=== PATIENT | female | born 1975 | race African-American/Black ===

== ENCOUNTER 2020-04-13 19:02 | Emergency (ER) | payer MEDICAID, OTHER ==
[~2020-04-13] VITALS: Ht 160 cm; Wt 95.3 kg
[~2020-04-13 19:02] MED LIST: QUET200T PO; ZIPR80CA2 PO
--- NOTE | 2020-04-13 20:00 | NUR ---
bibself +si plan to overdose on drugs. -hi. request to go to [facility]. pt aox4 rr even and unlabored. no sob noted. no nvd at this time. no acute distress noted. pt appears calm and cooperative. aware of plan of care and agrees to plan.
--- NOTE | 2020-04-13 20:05 | NUR ---
urine collected. sent to lab
--- NOTE | 2020-04-13 20:17 | NUR ---
lab with pt for blood draw
[2020-04-13 20:26] LABS: BASOPHILS % (AUTO) 0.8 % (0.0-2.0); EOSINOPHILS % (AUTO) 2.4 % (0.0-6.0); HEMATOCRIT 36 % (33-45); HEMOGLOBIN 11.6 g/dL (11.5-14.8); LYMPHOCYTES # (AUTO) 3.1 /CMM (0.8-4.8); LYMPHOCYTES % (AUTO) 48.4 % (20.0-44.0); MEAN CORPUSCULAR HGB CONC 33 g/dl (31.0-36.0); MEAN CORPUSCULAR VOLUME 86 fL (82-100); MONOCYTES # (AUTO) 0.5 /CMM (0.1-1.30); MONOCYTES % (AUTO) 7.8 % (2.0-12.0); NEUTROPHILS # (AUTO) 2.6 /CMM (1.8-8.9); NEUTROPHILS % (AUTO) 40.6 % (43.0-81.0); PLATELET COUNT (AUTO) 327 /CMM (150-450); RED BLOOD CELL COUNT(AUTO) 4.14 MIL/uL (4.0-5.2); WHITE BLOOD COUNT (AUTO) 6.3 K/uL (4.3-11.0)
[2020-04-13 20:37] LABS: BILIRUBIN,URINE NEGATIVE (NEGATIVE); COLOR,URINE YELLOW (YELLOW); LEUKOCYTE ESTERASE ,URINE NEGATIVE (NEGATIVE); NITRITE, URINE NEGATIVE (NEGATIVE); PH,URINE 6.5 (5.0-8.0); PROTEIN,URINE NEGATIVE (NEGATIVE); UGLUCOSE NEGATIVE (NEGATIVE)
[2020-04-13 20:45] LABS: BACTERIA,URINE 2+ /HPF (None Seen)
[2020-04-13 20:49] LABS: ALANINE AMINOTRANSFERASE 16 U/L (12-78); ALBUMIN 3.7 g/dL (3.4-5.0); ALKALINE PHOSPHATASE 60 U/L (46-116); ASPARTATE AMINOTRANSFERASE 15 U/L (15-37); BILIRUBIN,DIRECT 0.1 mg/dL (0.0-0.2); BILIRUBIN,TOTAL 0.2 mg/dL (0.2-1.0); CARBON DIOXIDE 29 mmol/L (21-32); CHLORIDE 103 mmol/L (98-107); GLUCOSE 99 mg/dL (74-106); SODIUM SERUM 140 mmol/L (136-145); TOTAL PROTEIN, SERUM 7.9 g/dL (6.4-8.2); UREA NITROGEN, BLOOD 9 mg/dL (7-18)
[2020-04-13 20:50] LABS: ACETAMINOPHEN < 10 ug/ml (10-30); ALCOHOL, BLOOD < 3 mg/dL (0-0)
[2020-04-13] MEDS ORDERED: CEPH500C2 PO (21:19)
--- NOTE | 2020-04-13 21:26 | NUR ---
Call from lab. Rapid covid negative.
--- NOTE | 2020-04-13 21:28 | NUR ---
Facesheet and clinicals faxed to [facility].
[2020-04-13] MEDS ORDERED: CEPHALEXIN MONOHYDRATE 500 MG CAPSULE PO ONE ×2 (21:30→21:42)
--- NOTE | 2020-04-13 23:47 | NUR ---
[facility] [phone]
--- NOTE | 2020-04-14 00:32 | NUR ---
called [facility] ambulance [phone], spoke to chintan stearns 30mins.
--- NOTE | 2020-04-14 01:03 | NUR ---
Report given to Irena BOYER for continuation of care.
[2020-04-14 01:08] VITALS: BP 132/66
--- NOTE | 2020-04-14 01:08 | NUR ---
pt transferred to [facility]. pt aware of transport. pt with all personal belongings. vss. [facility] transport took over care. pt placed on [facility].
== END 2020-04-14 02:23 ==
LOC: ER 19:06
DX: R45.851 Suicidal ideations (principal); F20.0 Paranoid schizophrenia; Z59.0 Homelessness; Z79.899 Other long term (current) drug therapy; N39.0 Urinary tract infection, site not specified; Z82.49 Family history of ischemic heart disease and other diseases of the circulatory system; Z20.822 Contact with and (suspected) exposure to COVID-19
CPT/HCPCS: 36415; 80048; 80076; 80299; 80307; 80320; 81001; 84703; 85025; 87086; 87426; 99285; C9803; G0480

== ENCOUNTER 2020-06-20 13:23 | Emergency (ER) | payer MEDICAID ==
[~2020-06-20] VITALS: Ht 162.6 cm; Wt 64.0 kg
[~2020-06-20 13:23] MED LIST changes: +CEPH500C2 PO
[2020-06-20 13:46] VITALS: BP 117/59
[2020-06-20 14:28] LABS: BASOPHILS % (AUTO) 0.6 % (0.0-2.0); EOSINOPHILS % (AUTO) 2.4 % (0.0-6.0); HEMATOCRIT 34 % (33-45); LYMPHOCYTES # (AUTO) 1.5 /CMM (0.8-4.8); LYMPHOCYTES % (AUTO) 31.4 % (20.0-44.0); MEAN CORPUSCULAR HGB CONC 32 g/dl (31.0-36.0); MEAN CORPUSCULAR VOLUME 85 fL (82-100); MONOCYTES # (AUTO) 0.4 /CMM (0.1-1.30); MONOCYTES % (AUTO) 8.4 % (2.0-12.0); NEUTROPHILS # (AUTO) 2.7 /CMM (1.8-8.9); NEUTROPHILS % (AUTO) 57.2 % (43.0-81.0); PLATELET COUNT (AUTO) 258 /CMM (150-450); RED BLOOD CELL COUNT(AUTO) 4.01 MIL/uL (4.0-5.2); WHITE BLOOD COUNT (AUTO) 4.7 K/uL (4.3-11.0)
[2020-06-20 14:42] LABS: ALANINE AMINOTRANSFERASE 18 U/L (12-78); ALBUMIN 2.9 g/dL (3.4-5.0); ALKALINE PHOSPHATASE 58 U/L (46-116); BILIRUBIN,TOTAL 0.1 mg/dL (0.2-1.0); CALCIUM, SERUM 8.5 mg/dL (8.5-10.1); CARBON DIOXIDE 28 mmol/L (21-32); CHLORIDE 106 mmol/L (98-107); CREATININE 0.9 mg/dL (0.6-1.3); GLUCOSE 96 mg/dL (74-106); POTASSIUM 3.1 mmol/L (3.5-5.1); SODIUM SERUM 142 mmol/L (136-145); TOTAL PROTEIN, SERUM 6.3 g/dL (6.4-8.2); UREA NITROGEN, BLOOD 9 mg/dL (7-18)
[2020-06-20 14:43] LABS: ACETAMINOPHEN < 10 ug/ml (10-30); ALCOHOL, BLOOD < 3 mg/dL (0-0)
[2020-06-20 15:01] LABS: ASPARTATE AMINOTRANSFERASE 15 U/L (15-37)
[2020-06-20 15:07] LABS: BILIRUBIN,URINE Negative (NEGATIVE); COLOR,URINE YELLOW (YELLOW); LEUKOCYTE ESTERASE ,URINE Negative (NEGATIVE); NITRITE, URINE Positive (NEGATIVE); PROTEIN,URINE Negative (NEGATIVE); UGLUCOSE Negative (NEGATIVE); UROBILINOGEN,URINE 0.2 EU/dL (0.2)
[2020-06-20] MEDS ORDERED: POTASSIUM CHLORIDE 20 MEQ TAB.PRT.SR PO ONE ×2 (15:30→15:48)
[2020-06-20] MEDS ORDERED: SULFAMETH/TRIMETH 800/160 MG 1 UDTAB TABLET PO ONE (15:30)
[2020-06-20 15:32] LABS: BACTERIA,URINE Many /HPF (None Seen); SQUAMOUS EPITHELIAL CELL,UR 0-2 /HPF (None Seen)
[2020-06-20] MEDS ORDERED: SULFAMETH/TRIMETH 800/160 MG 1 UDTAB TABLET ONE (15:48)
--- NOTE | 2020-06-20 22:30 | NUR ---
TRANSFER INFORMATION: PT ACCEPTED AT [facility] JOS[facility]AT [facility]ILLO ACCEPTING MD KINNEY PT WILL GO TO UNIT 2 PHONE NUMBER FOR REPORT
--- NOTE | 2020-06-20 22:36 | NUR ---
[facility] ETA 30MIN.
--- NOTE | 2020-06-20 23:03 | NUR ---
Report given to Tayler BOYER for continuation of care.
--- NOTE | 2020-06-20 23:14 | NUR ---
[facility] at bedside for transport to [facility].
== END 2020-06-20 23:17 ==
LOC: ER 13:29
DX: R45.851 Suicidal ideations (principal); E87.6 Hypokalemia; D64.9 Anemia, unspecified; F20.0 Paranoid schizophrenia; G89.29 Other chronic pain; M54.5 Low back pain; Z88.1 Allergy status to other antibiotic agents; E73.9 Lactose intolerance, unspecified; Z59.0 Homelessness; N30.00 Acute cystitis without hematuria; Z20.822 Contact with and (suspected) exposure to COVID-19
CPT/HCPCS: 36415; 80048; 80076; 80299; 80307; 80320; 81001; 84703; 85025; 87077; 87086; 87186; 87426; 99285; C9803; G0480

== ENCOUNTER 2020-11-04 19:39 | Emergency (ER) | payer MEDICAID ==
[~2020-11-04] VITALS: Ht 160 cm; Wt 90.7 kg
--- NOTE | 2020-11-04 20:05 | NUR ---
BIBS TO ER BED 19. AAOX4. NOT IN RESP DISTRESS. AMBULATORY. CAME IN FOR VOLUNATRY ADMISSION TO [facility] FOR SUICIDAL IDEATION W/ PLAN TO OD ON DRUGS. DENIES HOMICIDAL IDEATION. DENIES HALLUCINATIONS. PT WAS BELONGINGS PLACED IN LOCKER, SITTER AT BEDSIDE. MD WAS AT THE BEDSIDE WELL FOR EVAL.
--- NOTE | 2020-11-04 20:10 | NUR ---
AEROPHYSICIST AT BEDSIDE FOR BLOOD DRAW
[2020-11-04 20:21] LABS: BASOPHILS % (AUTO) 0.6 % (0.0-2.0); EOSINOPHILS % (AUTO) 4.2 % (0.0-6.0); HEMATOCRIT 35 % (33-45); HEMOGLOBIN 11.2 g/dL (11.5-14.8); LYMPHOCYTES % (AUTO) 43.8 % (20.0-44.0); MEAN CORPUSCULAR HGB CONC 32 g/dl (31.0-36.0); MEAN CORPUSCULAR VOLUME 86 fL (82-100); MONOCYTES # (AUTO) 0.3 K/uL (0.1-1.30); MONOCYTES % (AUTO) 7.3 % (2.0-12.0); NEUTROPHILS % (AUTO) 44.1 % (43.0-81.0); PLATELET COUNT (AUTO) 295 K/uL (150-450); RED BLOOD CELL COUNT(AUTO) 4.08 MIL/uL (4.0-5.2); WHITE BLOOD COUNT (AUTO) 4.6 K/uL (4.3-11.0)
[2020-11-04 20:25] LABS: BILIRUBIN,URINE NEGATIVE (NEGATIVE); COLOR,URINE YELLOW (YELLOW); LEUKOCYTE ESTERASE ,URINE TRACE (NEGATIVE); NITRITE, URINE NEGATIVE (NEGATIVE); PROTEIN,URINE NEGATIVE (NEGATIVE); UGLUCOSE NEGATIVE (NEGATIVE); UROBILINOGEN,URINE 0.2 EU/dL (0.2)
[2020-11-04 20:31] LABS: CALCIUM, SERUM 8.3 mg/dL (8.5-10.1); CARBON DIOXIDE 28 mmol/L (21-32); CHLORIDE 108 mmol/L (98-107); CREATININE 0.8 mg/dL (0.6-1.3); GLUCOSE 103 mg/dL (74-106); POTASSIUM 4.1 mmol/L (3.5-5.1); SODIUM SERUM 143 mmol/L (136-145); UREA NITROGEN, BLOOD 10 mg/dL (7-18)
[2020-11-04 20:33] LABS: BACTERIA,URINE RARE /HPF (None Seen)
[2020-11-04 20:35] LABS: ACETAMINOPHEN 1 ug/ml (10-30); ALANINE AMINOTRANSFERASE 25 U/L (12-78); ALBUMIN 3.1 g/dL (3.4-5.0); ALCOHOL, BLOOD < 3 mg/dL (0-0); ALKALINE PHOSPHATASE 61 U/L (46-116); ASPARTATE AMINOTRANSFERASE 21 U/L (15-37); BILIRUBIN,DIRECT 0.1 mg/dL (0.0-0.2); BILIRUBIN,TOTAL 0.1 mg/dL (0.2-1.0); TOTAL PROTEIN, SERUM 6.3 g/dL (6.4-8.2)
[2020-11-04] MEDS ORDERED: ARIPIPRAZOLE 5 MG TABLET PO ONE (23:30)
--- NOTE | 2020-11-04 23:48 | NUR ---
PATIENT'S CLINICALS FAXED TO [facility].
[2020-11-04] MEDS ORDERED: ARIPIPRAZOLE 2 MG TABLET ONE ×2 (23:53→23:54)
--- NOTE | 2020-11-05 00:03 | NUR ---
given food, needs met
--- NOTE | 2020-11-05 05:29 | NUR ---
refaxed clinicals to [facility]
--- NOTE | 2020-11-05 08:52 | NUR ---
FOLLOWED UP WITH [facility]. SPOKE WITH SIDNEY. [facility] IS AT CAPACITY. WAITING FOR A DISCHARGE BEFORE ACCEPTING PT
[2020-11-05 09:00] VITALS: BP 120/80
--- NOTE | 2020-11-05 10:29 | NUR ---
FAXED URINE HCG TEST TO [facility]
--- NOTE | 2020-11-05 10:43 | NUR ---
ACCEPTED AT [facility] IN PSYCH 6. CALL FOR REPORT WITH DAYANA AT [phone] [phone].
--- NOTE | 2020-11-05 10:49 | NUR ---
SPOKE WITH SPOHIE FROM [facility]. S[facility] ETA IS 20 MIN
--- NOTE | 2020-11-05 10:55 | NUR ---
REPORT GIVEN TO KARLA BOYER AT [facility]
--- NOTE | 2020-11-05 11:29 | NUR ---
PATIENT TRANSFERRED TO [facility], IN STABLE CONDITION.
== END 2020-11-05 11:32 ==
LOC: ER 19:41
DX: R45.851 Suicidal ideations (principal); F20.0 Paranoid schizophrenia; F19.10 Other psychoactive substance abuse, uncomplicated; Z88.1 Allergy status to other antibiotic agents; E73.9 Lactose intolerance, unspecified; Z59.0 Homelessness; Z91.19 Patient's noncompliance with other medical treatment and regimen; Z20.822 Contact with and (suspected) exposure to COVID-19; Z91.14 Patient's other noncompliance with medication regimen
CPT/HCPCS: 36415; 80048; 80076; 80143; 80307; 80320; 81001; 84703; 85025; 87086; 87426; 99285; C9803; G0480

== ENCOUNTER 2020-12-30 12:57 | Emergency (ER) | payer MEDICAID ==
[~2020-12-30] VITALS: Ht 160 cm; Wt 90.7 kg
--- NOTE | 2020-12-30 13:32 | NUR ---
URINE SPECIMEN COLLECTED,LAB CALLED FOR COVID SWAB AND LAB DRAW.
[2020-12-30 13:59] LABS: BASOPHILS # (AUTO) 0.1 K/uL (0.0-0.2); BASOPHILS % (AUTO) 1.1 % (0.0-2.0); EOSINOPHILS % (AUTO) 12.2 % (0.0-6.0); HEMATOCRIT 33 % (33-45); HEMOGLOBIN 10.5 g/dL (11.5-14.8); LYMPHOCYTES # (AUTO) 1.6 K/uL (0.8-4.8); LYMPHOCYTES % (AUTO) 33.8 % (20.0-44.0); MEAN CORPUSCULAR HGB CONC 32 g/dl (31.0-36.0); MEAN CORPUSCULAR VOLUME 83 fL (82-100); MONOCYTES # (AUTO) 0.5 K/uL (0.1-1.30); MONOCYTES % (AUTO) 9.9 % (2.0-12.0); PLATELET COUNT (AUTO) 321 K/uL (150-450); RED BLOOD CELL COUNT(AUTO) 3.99 MIL/uL (4.0-5.2); WHITE BLOOD COUNT (AUTO) 4.7 K/uL (4.3-11.0)
[2020-12-30 14:11] LABS: BILIRUBIN,URINE Negative (NEGATIVE); COLOR,URINE YELLOW (YELLOW); LEUKOCYTE ESTERASE ,URINE Trace (NEGATIVE); NITRITE, URINE Negative (NEGATIVE); PROTEIN,URINE Negative (NEGATIVE); UGLUCOSE Negative (NEGATIVE)
[2020-12-30 14:15] LABS: CALCIUM, SERUM 8.4 mg/dL (8.5-10.1); CARBON DIOXIDE 28 mmol/L (21-32); CHLORIDE 105 mmol/L (98-107); CREATININE 0.8 mg/dL (0.6-1.3); GLUCOSE 85 mg/dL (74-106); SODIUM SERUM 140 mmol/L (136-145); UREA NITROGEN, BLOOD 8 mg/dL (7-18)
[2020-12-30 14:21] LABS: ALANINE AMINOTRANSFERASE 15 U/L (12-78); ALBUMIN 2.9 g/dL (3.4-5.0); ALKALINE PHOSPHATASE 71 U/L (46-116); ASPARTATE AMINOTRANSFERASE 15 U/L (15-37); BILIRUBIN,TOTAL 0.1 mg/dL (0.2-1.0); TOTAL PROTEIN, SERUM 7.5 g/dL (6.4-8.2)
--- NOTE | 2020-12-30 14:23 | NUR ---
COVID SPECIMEN SENT TO THE LAB
[2020-12-30 14:34] LABS: ACETAMINOPHEN 0 ug/ml (10-30); ALCOHOL, BLOOD < 3 mg/dL (0-0)
[2020-12-30 14:56] LABS: BACTERIA,URINE Few /HPF (None Seen); SQUAMOUS EPITHELIAL CELL,UR Few /HPF (None Seen)
[2020-12-30] MEDS ORDERED: CEPHALEXIN MONOHYDRATE 500 MG CAPSULE PO ONE ×2 (16:30→16:38)
--- NOTE | 2020-12-30 16:42 | NUR ---
FAXED CLINICALS TO [facility] INTAKE.
--- NOTE | 2020-12-30 20:35 | NUR ---
TRANSFER INFO: PT ACCEPTED [facility] RN [phone]
--- NOTE | 2020-12-30 20:37 | NUR ---
[facility] BLS ETA [phone]
--- NOTE | 2020-12-30 21:14 | NUR ---
REPORT GIVEN TO SEAN
[2020-12-30] MEDS ORDERED: CEPH500C2 PO (21:17)
--- NOTE | 2020-12-30 21:29 | NUR ---
[facility] AT BEDSIDE GIVEN REPROT
[2020-12-30 23:02] VITALS: BP 121/67
== END 2020-12-30 21:30 ==
LOC: ER 12:58
DX: R45.851 Suicidal ideations (principal); N39.0 Urinary tract infection, site not specified; Z59.00 Homelessness unspecified; F20.0 Paranoid schizophrenia; Z20.822 Contact with and (suspected) exposure to COVID-19; Z79.899 Other long term (current) drug therapy; Z88.1 Allergy status to other antibiotic agents; E73.9 Lactose intolerance, unspecified
CPT/HCPCS: 36415; 80048; 80076; 80143; 80307; 80320; 81001; 84703; 85025; 87086; 87426; 99285; C9803; G0480